=== PATIENT | male | born 1945 | race Hispanic/Latino ===

== ENCOUNTER 2019-05-16 07:48 | Day surgery (SDC) | payer OTHER ==
[~2019-05-16 07:48] MED LIST: NACL 0.9% 1000 ML 1,000 ML IV SCH
[2019-05-16] MEDS ORDERED: DIPRIVAN 10 MG/ML IV ONE (09:23)
--- NOTE | 2019-05-16 09:25 | Anesthesia Day of Surgery ---
Anesthesia Day of Surgery - Day of Surgery Patient Examined: Yes Patient H&P Reviewed: Yes Patient is NPO: Yes Beta Blockers: No
--- NOTE | 2019-05-16 09:26 | Anesthesia Consultation ---
Anesthesia Consult and Med Hx Date of service: 05/16/19 - Airway Anesthetic Teeth Evaluation: Good ROM Head & Neck: Adequate Mental/Hyoid Distance: Adequate Mallampati Class: Class III Intubation Access Assessment: Probably Good - Pulmonary Exam CTA: Yes - Cardiac Exam Cardiac Exam: No Murmur - Pre-Operative Health Status ASA Pre-Surgery Classification: ASA3 Proposed Anesthetic Plan: MAC - Cardiovascular System Hx Hypertension: Yes
--- NOTE | 2019-05-16 09:57 | Procedure Note ---
Date of procedure: 05/16/19 Pre-op diagnosis: Colon Polyp Screening Post-op diagnosis: other (No Colon Polyps noted/ Moderate,Left Colon Diverticular Disease/ Minor,Internal Hemorrhoid) Procedure: Colonoscopy Anesthesia: MAC Surgeon: BRUCE WELLS Estimated blood loss: none Pathology: none Condition: stable Disposition: same day (Encourage fiber intake. Resume home medication and follow up in 1 to 2 weeks ([phone]).)
--- NOTE | 2019-05-16 10:03 | Operative Report ---
INDICATIONS: This is a 73-year-old white male with an underlying history of hypertension, right-sided hernia, whose last colonoscopy was several years ago. DESCRIPTION OF PROCEDURE: Colonoscopy was done as part of colon polyp screening. Procedure was done after getting informed consent with MAC anesthesia. Initial rectal exam was unremarkable. Instrument was passed through the rectum onto the cecum, which was identified with ileocecal valve and the appendiceal orifice. Visualization was fair to good. Cecum, ascending colon, transverse colon showed normal mucosa. There was moderate diverticular disease noted in the left colon and the rectum showed minor internal hemorrhoid on the retroverted view. There were no colon polyps noted, no biopsies done and no bleeding associated with the procedure. ASSESSMENT: Colon polyp screening, no colon polyps noted. Moderate left colon diverticular disease, minor internal hemorrhoid. PLAN: Plan is to encourage the patient to take fiber supplements and follow up in the office in 1-2 weeks' time. The procedure was done in the GI lab with assistance of RN, Kathia Yañez and the pharmacy resource tech as well as with the assistance of Anesthesia, the pharmacy resource tech being tech Britni. JOB# [id number] CHRISTOPHER/KATH
[2019-05-16 10:20] VITALS: BP 122/73
[2019-05-16] MEDS ORDERED: XYLOCAINE MPF 2% ONE (11:00)
== END 2019-05-16 07:49 | disposition home or self-care (01) ==
LOC: GIO 07:48
DX: Z12.11 Encounter for screening for malignant neoplasm of colon (principal); K64.8 Other hemorrhoids; K57.30 Diverticulosis of large intestine without perforation or abscess without bleeding; I10 Essential (primary) hypertension; K21.9 Gastro-esophageal reflux disease without esophagitis; Z98.890 Other specified postprocedural states; Z79.899 Other long term (current) drug therapy; Z79.82 Long term (current) use of aspirin
CPT/HCPCS: 45378; J2704; J7030